=== PATIENT | male | born 1975 | race African-American/Black ===

== ENCOUNTER 2017-07-10 20:34 | Inpatient (IN) ==
[2017-07-10] MEDS ORDERED: 0.9 % Sodium Chloride 1,000 ML IVC ONE (21:45)
[2017-07-10] MEDS ORDERED: Dexamethasone 4 MG/ML VIAL IVP ONE (21:46)
[2017-07-10 22:13] LABS: Basophils # 0.1 K/mcL (0.0-0.2); Basophils % 0.5 %; Eosinophils # 0.1 K/mcL (0.0-0.6); Eosinophils % 0.4 %; Hematocrit 43.7 % (37.5-50.1); Hemoglobin 13.6 g/dL (12.9-16.9); Immature Granulocytes % 0.5 % (0-4); Lymphocytes # 2.4 K/mcL (0.6-4.6); Lymphocytes % 14.1 %; Mean Corpuscular HGB Conc 31.1 g/dL (31.6-35.5); Mean Corpuscular Hemoglobin 21.4 pg (28.0-33.3); Mean Corpuscular Volume 68.8 fL (83.0-100.0); Mean Platelet Volume 11.2 fL (9.4-12.4); Monocytes # 1.5 K/mcL (0.0-1.3); Monocytes % 8.7 %; Platelet Count 327 K/mcL (140-400); Red Blood Count 6.35 M/mcL (4.19-5.50); Red Cell Distribution Width 18.6 % (11.5-14.5); Segmented Neutrophils % 75.8 %
--- NOTE | 2017-07-10 22:22 | Emergency Department Note ---
Disposition Clinical Impression: Tonsillitis, Febrile illness Disposition: Admitted As Inpatient Condition: Fair Referrals: Kevon Chahal MD [Primary Care Provider] - Forms: ED Satisfaction Letter Time of Disposition: 22:34 General Adult HPI - General Chief complaint: ED Upper Respiratory Infection Stated complaint: sore throat,ear pain x3 days Time Seen by Provider: 07/10/17 21:38 Source: patient Limitations: no limitations Nursing Notes Reviewed: Yes Vital Signs Reviewed: Yes - History of Present Illness HPI Narrative: 41-year-old male presents to the emergency room for sore throat and ear pain. States started developing a massive sore throat a few days ago. Now he is unable to swallow much due to the pain and has been spitting up saliva. Has difficulty speaking due to the pain and muffled voice. He admits to fevers and chills. He also admits to bilateral ear pain. States he was told years ago to get his tonsils out but never did. He denies any cough or sputum production. States he is able to breathe and swallow okay when he can get past the pain. Pain Scale: 10 - Related Data Previous Rx's Medication Instructions Recorded Ondansetron ODT [Zofran ODT] 4 mg SL Q6HR #12 tab.rapdis 10/06/15 Allergies Allergy/AdvReac Type Severity Reaction Status Date / Time vancomycin Allergy Chills Verified 04/13/17 00:58 Constitutional: Reports: fever, chills Eyes: Reports: as per HPI ENT ED: Reports: ear pain, throat pain, congestion Cardiovascular: Reports: as per HPI. Denies: chest pain, palpitations Respiratory: Denies: cough, dyspnea, wheezes, hemoptysis Gastrointestinal: Reports: as per HPI Genitourinary: Reports: as per HPI Musculoskeletal: Reports: as per HPI Integumentary: Reports: as per HPI Neurological: Reports: as per HPI Psychiatric: Reports: as per HPI Endocrine: Reports: as per HPI Hematological/Lymphatic: Reports: as per HPI Allergic/Immunologic: Reports: as per HPI Past Medical History - Past Medical History Medical history: Reports: hypertension Surgical history: Reports: non-contributory Psychiatric history: Reports: no psych history - Social History Smoking Status: Never smoker Smokeless Tobacco Status: No Alcohol use: Reports: none Drug use: Reports: none Physical Exam - General Limitations: no limitations General appearance: alert, in no apparent distress - Head Head exam: atraumatic, normocephalic - ENT ENT exam: mucous membranes moist, other (Positive for anterior cervical lymphadenopathy. Bilateral.) - Expanded ENT Exam TM/Canal: Bulging: Bilateral TM, Effusion: Bilateral TM Mouth exam: Present: drooling, trismus, tongue elevation Throat exam: Present: tonsillar erythema, tonsillomegaly, tonsillar exudate, muffled voice - Neck Neck exam: Present: trachea midline, tenderness, other (Soft tissue swelling located along the bilateral anterior neck region.) - Chest Chest inspection: Present: normal inspection, symmetric chest wall rise - Respiratory Respiratory exam: Present: normal lung sounds bilaterally - Cardiovascular Cardiovascular exam: Present: normal rhythm, tachycardia - Abdominal Exam Abdominal exam: Present: soft, Non-Tender, normal bowel sounds - Extremities Exam Extremities exam: Present: normal inspection - Back Exam Back exam: Present: normal inspection - Neurological Exam Neurological exam: Present: alert, oriented X3 - Psychiatric Psychiatric exam: Present: normal affect, normal mood - Skin Skin exam: Present: warm, dry, intact Course - Reevaluation(s) Reevaluation #1: pt doing ok i placed him on O2, he got steroids, ordered unasyn consulted with ent - Consultations Consultation #1: spoke with dr bradshaw with [facility] will see in consult Vital Signs Temperature 102 F H 07/10/17 20:41 Pulse Rate 114 07/10/17 20:41 Respiratory Rate 18 07/10/17 20:41 Blood Pressure 185/114 07/10/17 20:41 O2 Sat by Pulse Oximetry 92 07/10/17 20:41 Temperature 102 F H 07/10/17 20:41 Pulse Rate 114 07/10/17 20:41 Respiratory Rate 18 07/10/17 20:41 Blood Pressure 185/114 07/10/17 20:41 O2 Sat by Pulse Oximetry 92 07/10/17 20:41 Oxygen Delivery Oxygen Delivery Room Air Medical Decision Making - Lab Data Result diagrams: 07/10/17 22:05 07/10/17 22:05 Lab Results 07/10/17 07/10/17 Range/Units 22:05 22:05 WBC 17.1 H (4.3-11.1) K/mcL RBC 6.35 H (4.19-5.50) M/mcL Hgb 13.6 (12.9-16.9) g/dL Hct 43.7 (37.5-50.1) % MCV 68.8 L (83.0-100.0) fL MCH 21.4 L (28.0-33.3) pg MCHC 31.1 L (31.6-35.5) g/dL RDW 18.6 H (11.5-14.5) % Plt Count 327 (140-400) K/mcL MPV 11.2 (9.4-12.4) fL Immature Gran % 0.5 (0-4) % Seg Neutrophils % 75.8 % Lymphocytes % 14.1 % Monocytes % 8.7 % Eosinophils % 0.4 % Basophils % 0.5 % Neutrophils # 13.0 H (1.6-8.9) K/mcL Lymphocytes # 2.4 (0.6-4.6) K/mcL Monocytes # 1.5 H (0.0-1.3) K/mcL Eosinophils # 0.1 (0.0-0.6) K/mcL Basophils # 0.1 (0.0-0.2) K/mcL Platelet Estimate Normal (Normal) Anisocytosis 1+ A (Not Present) Sodium 137 (136-145) mEq/L Potassium 3.6 (3.5-5.1) mEq/L Chloride 102 (98-107) mEq/L Carbon Dioxide 26 (23-29) mEq/L BUN 14 (6-20) mg/dL Creatinine 0.94 (0.70-1.30) mg/dL Est GFR ( Amer) > 60 (> 60) Est GFR (Non-Af Amer) > 60 (> 60) BUN/Creatinine Ratio 15 (6-26) Glucose 106 H (70-105) mg/dL Calculated Osmolality 285 (280-300) Calcium 9.6 (8.6-10.3) mg/dL Critical Care Time Critical Care Time: Yes Total Critical Care Time: 35 Attestation: Critical care time spent and medical management of the patient's significant tonsillitis. I also spent time in consultation with ENT in the hospitalist.
[2017-07-10] MEDS ORDERED: Acetaminophen IV 1,000 MG/100 ML INFUS..BTL IVPB ONE (22:23)
[2017-07-10 22:29] LABS: Platelet Estimate Normal (Normal)
[2017-07-10 22:30] LABS: Anisocytosis 1+ (Not Present)
[2017-07-10] MEDS ORDERED: Ampicillin/Sulbactam 3,000 MG in 0.9 % Sodium Chloride Mini Bag 100 ML IVPB ONE (22:30)
[2017-07-10 22:32] LABS: BUN/Creatinine Ratio 15 (6-26); Blood Urea Nitrogen 14 mg/dL (6-20); Calcium 9.6 mg/dL (8.6-10.3); Carbon Dioxide 26 mEq/L (23-29); Chloride 102 mEq/L (98-107); Glucose 106 mg/dL (70-105); Osmolality,Calculated 285 (280-300); Potassium 3.6 mEq/L (3.5-5.1); Sodium 137 mEq/L (136-145); eGFR For African Americans > 60 (> 60); eGFR For Non-African Americans > 60 (> 60)
[2017-07-10] MEDS ORDERED: Ringers Solution, Lactated 1,000 ML IVC SCH (23:30)
[2017-07-10] MEDS ORDERED: Naloxone 0.4 MG/ML INJ IVP PRN (23:30)
--- NOTE | 2017-07-10 23:36 | Internal Med History&Physical ---
Date of Encounter: 07/10/17 Time of Encounter: 23:33 Assessment and Plan (1) Tonsillitis Current visit: Yes Status: Acute D/w ED who d/w ENT - Dr Eduardo will see patient in the a.m Continue high dose Iv unasyn, another dose of dex in a.m IVF supportive care for now advised to have patient sit upright for comfort CT with no evidence of peritonsillar abscess but suspicion for early changes. (2) SIRS (systemic inflammatory response syndrome) Current visit: Yes Status: Acute IVF , IV antibiotics (3) HTN (hypertension) Current visit: Yes Status: Acute Hold BP med due to normotensive Qualifiers: Hypertension type: essential hypertension Qualified Code(s): I10 - Essential (primary) hypertension (4) Depression Current visit: Yes Status: Acute hold med as NPO due to above Qualifiers: Active/Remission status: in full remission Qualified Code(s): F33.42 - Major depressive disorder, recurrent, in full remission Internal Medicine - H&P: HPI Chief complaint: sore throat History of present illness: Mr. Castillo is a 41 year old male with a history of hypertension, depression who presents with 3 days history of sore throat. Admitted for severe tonsillitis. Symptoms started 3 days ago with sore throat, associated fever, chills, temperature of 102. Painful swallowing food and saliva. Has to spit saliva. The symptoms did not get better with time and had worsened leading to ER visit today. CT/CT soft tissue neck w con IMPRESSION: No acute abnormality of the soft tissue structures of the neck. RECOMMENDATIONS: Consistent with tonsillitis. As yet no evidence for peritonsillar abscess however there is a focal hypodense area in the right palatine tonsil warranting close clinical follow-up or repeat study symptoms fail to improve. Past Med Surg Social Fam HX - Past Medical History Medical history: hypertension Psychiatric history: no psych history - Past Surgical History Surgical History: non-contributory - Social History Smoking Status: Never smoker Smokeless Tobacco Status: No Alcohol use: none Drug use: none Internal Medicine - H&P: Meds Ondansetron ODT [Zofran ODT] 4 mg SL Q6HR #12 tab.rapdis 10/06/15 [Rx] 3 Allergy/AdvReac Type Severity Reaction Status Date / Time vancomycin Allergy Chills Verified 04/13/17 00:58 All Systems PM: A 10-system review of systems was performed and is negative for pertinent findings except as documented above in the HPI. Review of systems: ROS 14 point review of systems reviewed as best as possible given presentation. Pertinent positive or negative as per HPI or otherwise reviewed as negative - Constitutional Vitals: Temp Pulse Resp BP Pulse Ox 102 F H 114 18 185/114 92 07/10/17 20:41 07/10/17 20:41 07/10/17 20:41 07/10/17 20:41 07/10/17 20:41 Exam: General - AAO x 3 Psych - Appropriate affect/speech. No agitation Eyes - ADRIANNA. Eye lids intact. No scleral icterus ENT - sore throat, tonsilar swelling, no drooling but spiting out saliva, no neck masses noted Heart - Sinus tachy. RRR. S1 and S2 present. No added HS/murmurs appreciated. No elevated JVD appreciated. Lung - Adequate air entry b/l, No crackles/wheezes appreciated GI - Soft, non-tender. No hepatosplenomegaly/ascites. BS+ - No CVA/suprapubic tenderness or palpable bladder distension Skin - Intact. No rash/petechiae/ecchymosis. Warm extremities Internal Med - H&P Results - Labs CBC & Chem 7: 07/10/17 22:05 07/10/17 22:05
[2017-07-11] MEDS: *HR* FentaNYL (PF) 100 MCG/2 ML VIAL IVP PRN ×2 (01:29→09:45)
[2017-07-11 01:59] LABS: Basophils # 0.1 K/mcL (0.0-0.2); Basophils % 0.3 %; Eosinophils % 0.1 %; Hematocrit 42.4 % (37.5-50.1); Hemoglobin 13.1 g/dL (12.9-16.9); Immature Granulocytes % 0.6 % (0-4); Lymphocytes # 1.1 K/mcL (0.6-4.6); Lymphocytes % 6.2 %; Mean Corpuscular HGB Conc 30.9 g/dL (31.6-35.5); Mean Corpuscular Hemoglobin 21.2 pg (28.0-33.3); Mean Corpuscular Volume 68.6 fL (83.0-100.0); Mean Platelet Volume 10.7 fL (9.4-12.4); Monocytes # 0.4 K/mcL (0.0-1.3); Neutrophils # 16.3 K/mcL (1.6-8.9); Platelet Count 308 K/mcL (140-400); Red Blood Count 6.18 M/mcL (4.19-5.50); Red Cell Distribution Width 18.4 % (11.5-14.5); Segmented Neutrophils % 90.8 %
[2017-07-11 02:07] LABS: INR 1.2
[2017-07-11 02:09] LABS: Activated Partial Thrombo Time 32.7 Seconds (26.0-36.0)
[2017-07-11 02:22] LABS: BUN/Creatinine Ratio 17 (6-26); Blood Urea Nitrogen 14 mg/dL (6-20); Calcium 9.4 mg/dL (8.6-10.3); Carbon Dioxide 24 mEq/L (23-29); Chloride 100 mEq/L (98-107); Glucose 133 mg/dL (70-105); Osmolality,Calculated 278 (280-300); Potassium 3.8 mEq/L (3.5-5.1); Sodium 133 mEq/L (136-145); eGFR For African Americans > 60 (> 60); eGFR For Non-African Americans > 60 (> 60)
[2017-07-11 02:45] LABS: Platelet Estimate Normal (Normal)
[2017-07-11 02:46] LABS: Anisocytosis 1+ (Not Present)
[2017-07-11] MEDS ORDERED: Dexamethasone 10 MG/ML VIAL IVP ONE (03:00)
[2017-07-11] MEDS: Ampicillin/Sulbactam 3,000 MG in 0.9 % Sodium Chloride Mini Bag 100 ML IVPB SCH ×2 (03:59→09:02)
--- NOTE | 2017-07-11 10:36 | Internal Med Progress Note ---
Date of Encounter: 07/11/17 Time of Encounter: 10:33 - Subjective Interval history: Patient is sitting up in bed in no acute distress on room air. His throat is very sore, he states he has no difficulty breathing, he is able to swallow his secretions. He stated his fever broke overnight and he has had no further fevers or chills. He states his glands are very tender especially on the right side. No nausea, vomiting, chest pain, shortness of breath, syncope or dizziness. - Constitutional Vitals: Temp Pulse Resp BP Pulse Ox 97.9 F 85 16 158/96 94 07/11/17 07:57 07/11/17 07:57 07/11/17 07:57 07/11/17 07:57 07/11/17 07:57 General appearance: Present: cooperative, A&O X 3, pleasant, no acute distress, answers questions appropriately - Head Head exam: Present: atraumatic, normocephalic - Eye Eye exam: Present: PERRL, conjuntiva pink, sclera anicteric Pupils: Present: PERRL - ENT ENT exam: Present: mucous membranes moist Additional comments: Tonsilar lands are swollen and tender bilaterally with obvious swelling on the right side of his face, no drooling and unable to swallow his spit. - Neck Neck exam general surgery: Present: supple, trachea midline. Absent: lymphadenopathy - Respiratory Respiratory exam: Present: CTAB. Absent: accessory muscle use, rales, rhonchi, wheezes - Cardiovascular Cardiovascular exam: Present: RRR, +S1, +S2. Absent: diastolic murmur, gallop, rubs, systolic murmur - GI/Abdominal GI/Abdominal exam: Present: normal bowel sounds, soft, no peritoneal signs. Absent: distended, tenderness - Extremities Exam Extremities exam: Present: warm, radial pulses palpable and symmetrical. Absent : calf tenderness, cyanotic, pedal edema - Neurological Exam Neurological exam: Present: CN II-XII intact, oriented X3, no focal deficits. Absent: pronater drift, facial droop, speech deficit - Skin Skin exam: Present: dry, intact Internal Medicine: Result - Labs CBC & Chem 7: 07/11/17 01:49 07/11/17 01:49 Labs: Short CBC 07/11/17 Range/Units 01:49 WBC 18.0 H (4.3-11.1) K/mcL Hgb 13.1 (12.9-16.9) g/dL Hct 42.4 (37.5-50.1) % Plt Count 308 (140-400) K/mcL Neutrophils # 16.3 H (1.6-8.9) K/mcL BMP 07/11/17 01:49 Sodium 133 L Potassium 3.8 Chloride 100 Carbon Dioxide 24 BUN 14 Creatinine 0.83 Glucose 133 H Calcium 9.4 - ABG Interpretation ABG results: PT/INR, D-dimer PT 13.0 Seconds (9.4-12.1) H 07/11/17 01:49 Consult Discharge Plan - Plan Referrals: Kevon Chahal MD [Primary Care Provider] -
[2017-07-11 11:28] VITALS: BP 148/93
--- NOTE | 2017-07-11 13:36 | Discharge Summary ---
Date of Encounter: 07/11/17 Time of Encounter: 13:28 - Discharge Diagnosis (1) Tonsillitis Priority: Primary Status: Acute Comments: Patient was admitted from the emergency room with tonsillitis He received 2 doses of Unasyn and IV fluids CT with no evidence of peritonsillar abscess but suspicion for early changes Supportive care including liquid soft diet Will follow-up with ENT as an outpatient in 2 weeks with number provided for contact Will complete a 10 day course of Augmentin 1000 mg by mouth twice a day To complete a Medrol 4 mg Dosepak as directed on labile To return to the ED if he develops any respiratory difficulty or difficulty swallowing his own secretions I discussed this patient with Dr. Eduardo from ENT service. He stated he told the ER to send him home last night. He said he will see him in the office in 2 weeks to discuss further actions including possible tonsillectomy. He can call the office if he develops further problems in the next 7 days (2) Febrile illness Priority: Primary Status: Acute Comments: Patient had fever of 102 in the ER and has now been afebrile throughout the day (3) SIRS (systemic inflammatory response syndrome) Priority: Primary Status: Acute Comments: Actiq acid of 12 draws Patient was initially febrile now afebrile Blood pressure is stable (4) Depression Priority: Secondary Status: Acute Comments: Continue home meds Qualifiers: Active/Remission status: in full remission Qualified Code(s): F33.42 - Major depressive disorder, recurrent, in full remission (5) HTN (hypertension) Priority: Secondary Status: Acute Comments: Blood pressure stable continue home meds Qualifiers: Hypertension type: essential hypertension Qualified Code(s): I10 - Essential (primary) hypertension - Discharge Medications Prescriptions: Amoxicillin/Clavulanate [Augmentin] 1,000 mg PO BIDWM 10 Days #20 tablet methylPREDNISolone [Medrol] 4 mg PO DAILY #1 tablet Home Medications: Amlodipine Besylate 10 mg PO DAILY 07/11/17 [History] Amoxicillin/Clavulanate [Augmentin] 1,000 mg PO BIDWM 10 Days #20 tablet [Rx] BuPROPion XL (24 HR) [Wellbutrin Xl] 150 mg PO DAILY 07/11/17 [History] Lisinopril/Hydrochlorothiazide [Zestoretic 20-25 mg Tablet] 1 tab PO DAILY 07/11 [History] Quetiapine Fumarate [Seroquel] 300 mg PO HS 07/11/17 [History] Sertraline [Zoloft] 100 mg PO DAILY 07/11/17 [History] Zolpidem [Ambien] 5 mg PO HS 07/11/17 [History] methylPREDNISolone [Medrol] 4 mg PO DAILY #1 tablet 07/11/17 [Rx] Allergies/Adverse Reactions: 3 Allergy/AdvReac Type Severity Reaction Status Date / Time vancomycin Allergy Chills Verified 04/13/17 00:58 Date of admission: 07/10/17 23:30 Primary care physician: Kevon Chahal MD Discharging clinician: Lakia Cartagena Anticipated date of discharge: 07/11/17 - Patient Status Disposition: Home, Self-Care Condition: Fair Functional capacity at discharge: independent ambulation Overall status at discharge: patient is progressing back to baseline - Discharge Instructions Follow Up With: Kevon Chahal MD [Primary Care Provider] - Additional Instructions: Complete antibiotic course as directed, Medrol Dosepak, diet as tolerated, follow-up with ear nose and throat in 2 weeks, if difficulty maintaining airway return to the ER, diet as tolerated, liquids and soft diet for the next several days. - Diet and Activity Activity: resume usual activities as tolerated Diet: advance to your usual diet Interval History: Patient feeling much better he is tolerating his liquids, he is swallowing his own secretions. He has no airway difficulties. He has been afebrile since the ER last night with no fever or chills noted. He is up in the bathroom without difficulty. He states his back is killing him from laying in the bed. Discussed option of staying overnight and be monitored or go home on antibiotics and a Medrol Dosepak and follow-up with ENT as an outpatient he chose the latter. He is at the bedside and verbalized understanding of the conversation as well. Hospital course: Mr. Castillo is a 41 year old male presented to the ED with throat pain fever and malaise. He was treated with Unasyn and IV fluids. Was admitted to the floor for ENT consult. Patient did very well through the day. Spoke with ENT this afternoon. They recommended patient go home on a Augmentin without milligrams twice a day for 10 days and Medrol 4 mg Dosepak. He can follow-up in the office he has difficulties in the next week or so and follow-up in 2 weeks for sure to discuss further management including possible tonsillectomy. Patient verbalized understanding to return to the ED if he develops difficulty with swallowing secretions or airway problems. - Time Spent with Patient Total time spent providing and/or coordinating discharge services: Less than 30 minutes - Constitutional Vitals: Temp Pulse Resp BP Pulse Ox 97.1 F L 82 16 148/93 94 07/11/17 11:26 07/11/17 11:26 07/11/17 11:26 07/11/17 11:07/11/17 11:26 General appearance: Present: cooperative, A&O X 3, pleasant, no acute distress, answers questions appropriately - Head Head exam: Present: atraumatic, normocephalic - Eye Eye exam: Present: PERRL, conjuntiva pink, sclera anicteric Pupils: Present: PERRL - ENT Additional comments: - sore throat, tonsilar swelling, no drooling but spiting out saliva, no neck masses noted - Neck Neck exam general surgery: Present: supple, trachea midline. Absent: lymphadenopathy - Respiratory Respiratory exam: Present: CTAB. Absent: accessory muscle use, rales, respiratory distress, rhonchi, stridor, wheezes - Cardiovascular Cardiovascular exam: Present: RRR, +S1, +S2. Absent: diastolic murmur, gallop, rubs, systolic murmur - GI/Abdominal GI/Abdominal exam: Present: normal bowel sounds, soft, no peritoneal signs. Absent: distended, tenderness - Extremities Exam Extremities exam: Present: warm, radial pulses palpable and symmetrical. Absent : calf tenderness, cyanotic, pedal edema - Neurological Exam Neurological exam: Present: CN II-XII intact, oriented X3, no focal deficits. Absent: pronater drift, facial droop, speech deficit - Skin Skin exam: Present: dry, intact, warm
== END 2017-07-11 14:15 | disposition home or self-care (01) | DRG 113 ==
LOC: EMEROO 20:34 → 3BNU 20:34
PROVIDERS: ADMIT Internal Medicine Hematology & Oncology; ATTEND Registered Nurse

== ENCOUNTER 2020-02-17 19:59 | Observation (INO) ==
[2020-02-17] MEDS ORDERED: Gadolinium Contrast Agent (WT Based) IV PRN (20:17)
[2020-02-17 20:45] LABS: Basophils # 0.1 K/mcL (0.0-0.2); Basophils % 0.6 %; Eosinophils % 0.1 %; Hemoglobin 13.6 g/dL (12.9-16.9); Immature Granulocytes % 0.3 % (0-4); Lymphocytes # 2.9 K/mcL (0.6-4.6); Lymphocytes % 26.1 %; Mean Corpuscular HGB Conc 31.6 g/dL (31.6-35.5); Mean Corpuscular Hemoglobin 22.1 pg (28.0-33.3); Mean Platelet Volume 10.3 fL (9.4-12.4); Monocytes # 0.8 K/mcL (0.0-1.3); Monocytes % 7.2 %; Neutrophils # 7.4 K/mcL (1.6-8.9); Platelet Count 276 K/mcL (140-400); Red Blood Count 6.14 M/mcL (4.19-5.50); Red Cell Distribution Width 17.8 % (11.5-14.5); Segmented Neutrophils % 65.7 %; White Blood Count 11.2 K/mcL (4.3-11.1)
[2020-02-17 21:01] LABS: BUN/Creatinine Ratio 13 (6-26); Blood Urea Nitrogen 12 mg/dL (6-20); Calcium 8.9 mg/dL (8.6-10.3); Carbon Dioxide 25 mEq/L (23-29); Chloride 106 mEq/L (98-107); Glucose 102 mg/dL (70-105); Osmolality,Calculated 290 (280-300); Potassium 3.6 mEq/L (3.5-5.1); Sodium 140 mEq/L (136-145); eGFR For African Americans > 60 (> 60); eGFR For Non-African Americans > 60 (> 60)
[2020-02-17 21:02] LABS: Troponin I < 0.03 ng/mL (< 0.04)
[2020-02-17] MEDS ORDERED: *HR* HYDROmorphone (PF) 1 MG/ML SYRINGE IVP ONE ×2 (21:37→23:57)
[2020-02-17] MEDS ORDERED: 0.9 % Sodium Chloride 1,000 ML IVC ONE (21:48)
[2020-02-17] MEDS ORDERED: Ketorolac 15 MG/ML VIAL IVP ONE (23:57)
[2020-02-18] MEDS ORDERED: *HR* Promethazine 25 MG/ML VIAL IVP PRN (01:34)
[2020-02-18] MEDS ORDERED: Naloxone 0.4 MG/ML INJ IVP PRN (01:34)
[2020-02-18] MEDS ORDERED: Acetaminophen 325 MG TABLET PO PRN (01:34)
[2020-02-18] MEDS: 0.9 % Sodium Chloride 1,000 ML IVC SCH ×2 (02:32→13:02)
[2020-02-18] MEDS: QUEtiapine Fumarate 100 MG TABLET PO SCH ×2 (04:17→21:11)
[2020-02-18] MEDS: *HR* HYDROmorphone (PF) 1 MG/ML SYRINGE IVP PRN ×2 (04:17→08:38)
[2020-02-18 05:08] LABS: INR 1.1; Prothrombin Time 12.9 Seconds (9.4-12.1)
[2020-02-18 05:09] LABS: Hematocrit 40.9 % (37.5-50.1); Hemoglobin 12.5 g/dL (12.9-16.9); Mean Corpuscular HGB Conc 30.6 g/dL (31.6-35.5); Mean Corpuscular Hemoglobin 21.2 pg (28.0-33.3); Mean Corpuscular Volume 69.4 fL (83.0-100.0); Mean Platelet Volume 10.7 fL (9.4-12.4); Platelet Count 259 K/mcL (140-400); Red Blood Count 5.89 M/mcL (4.19-5.50); Red Cell Distribution Width 17.7 % (11.5-14.5); White Blood Count 8.7 K/mcL (4.3-11.1)
[2020-02-18 05:19] LABS: BUN/Creatinine Ratio 14 (6-26); Blood Urea Nitrogen 11 mg/dL (6-20); Calcium 8.5 mg/dL (8.6-10.3); Carbon Dioxide 24 mEq/L (23-29); Chloride 106 mEq/L (98-107); Glucose 96 mg/dL (70-105); Osmolality,Calculated 283 (280-300); Phosphorous 3.8 mg/dL (2.7-4.5); Potassium 3.6 mEq/L (3.5-5.1); Sodium 137 mEq/L (136-145); eGFR For African Americans > 60 (> 60); eGFR For Non-African Americans > 60 (> 60)
[2020-02-18] MEDS: Gabapentin 300 MG CAPSULE PO SCH ×3 (08:42→21:11)
[2020-02-18] MEDS: *HR* OxyCODONE Immed Rel 5 MG TABLET PO PRN ×3 (12:03→21:37)
[2020-02-18 13:19] LABS: Bilirubin,Urine Negative (Negative); Blood,Urine Negative (Negative); Clarity,Urine Clear (Clear); Color,Urine Light-Yellow (Yellow); Glucose,Urine (UA) Normal (Normal); Ketones,Urine Negative (Negative); Leukocyte Esterase,Urine Negative (Negative); Nitrite,Urine Negative (Negative); PH,Urine 6.5 pH Units (5.0-8.0); Protein,Urine Trace mg/dL (Neg-Trace); Specific Gravity,Urine 1.029 (1.010-1.025); Urobilinogen,Urine Normal (Normal)
[2020-02-18] MEDS ORDERED: amLODIPine 5 MG TABLET PO SCH (21:00)
[2020-02-18] MEDS ORDERED: *HR* OxyCODONE Immed Rel 5 MG TABLET PO PRN (22:56)
[2020-02-18] MEDS ORDERED: Ketorolac 15 MG/ML VIAL IVP PRN (22:59)
[2020-02-19 01:28] LABS: Hematocrit 41.8 % (37.5-50.1); Hemoglobin 12.8 g/dL (12.9-16.9); Mean Corpuscular HGB Conc 30.6 g/dL (31.6-35.5); Mean Corpuscular Hemoglobin 21.4 pg (28.0-33.3); Mean Platelet Volume 10.6 fL (9.4-12.4); Platelet Count 238 K/mcL (140-400); Red Blood Count 5.97 M/mcL (4.19-5.50); Red Cell Distribution Width 17.8 % (11.5-14.5)
[2020-02-19 01:43] LABS: BUN/Creatinine Ratio 11 (6-26); Blood Urea Nitrogen 11 mg/dL (6-20); Calcium 8.6 mg/dL (8.6-10.3); Carbon Dioxide 26 mEq/L (23-29); Chloride 104 mEq/L (98-107); Glucose 141 mg/dL (70-105); Osmolality,Calculated 286 (280-300); Potassium 3.4 mEq/L (3.5-5.1); Sodium 137 mEq/L (136-145); eGFR For African Americans > 60 (> 60); eGFR For Non-African Americans > 60 (> 60)
[2020-02-19 07:04] VITALS: BP 121/82
[2020-02-19] MEDS: Gabapentin 300 MG CAPSULE PO SCH (08:06)
[2020-02-19] MEDS: *HR* OxyCODONE Immed Rel 5 MG TABLET PO PRN (08:07)
[2020-02-19] MEDS ORDERED: FLU Vac QV 20-21 (6Month+)/PF 0.5 ML SYRINGE IM ONE (10:08)
== END 2020-02-19 14:00 | disposition home or self-care (01) ==
LOC: EMEROOARM 19:59 → 3NENU 19:59 → SUATTDRO 02-18 00:37 → 3NENU 02-18 01:21
PROVIDERS: ADMIT Family Medicine; ATTEND Internal Medicine